=== PATIENT | female | born 1995 | race Caucasian/White ===

== ENCOUNTER 2017-12-16 16:45 | Observation (INO) | payer OTHER, MEDICAID ==
[~2017-12-16] VITALS: Ht 165.1 cm; Wt 104.3 kg
--- NOTE | ~2017-12-16 | OP ---
[address] [address] OPERATIVE REPORT Name: ILENE ZHANG Room: [address] Cesia Das#: [id number] Admission: 12/16/17 Attend Phys: Roland Luu MD Discharge: 12/17/17 Date of : 89 Report #: [id number] THIS REPORT FOR: //name// Please see the post operative note for details of the operative report. By: [id number] Records Staff FAISAL /MARCO A
[~2017-12-16 16:45] MED LIST: MACROBID 100 M100 M1 PO; PRENATAL PO
[2017-12-16 16:55] VITALS: BP 120/58
[2017-12-16 17:18] LABS: HEMOGLOBIN 10.1 gm/dL (12.0-15.0); MCH 28.1 pg (26.0-34.0); MCHC 33.6 g/dL (28.0-37.0); MCV 83.5 fL (80.0-100.0); NUCLEATED RBCS 0 /100WBC; PLATELET COUNT* 379 thou/uL (150-400); RBC 3.59 mil/uL (4.20-5.00); RDW-CV 15.5 % (10.5-14.5); WBC 33.6 thou/uL (4.0-11.0)
[2017-12-16 17:26] LABS: CALCIUM 8.6 mg/dL (8.5-10.1); CREATININE 0.8 mg/dL (0.6-1.3); POTASSIUM 3.3 mmol/L (3.5-5.1)
[2017-12-16 17:30] LABS: ALBUMIN 2.6 g/dL (3.4-5.0); TOTAL BILIRUBIN 0.2 mg/dL (<0.1-1.0); TOTAL PROTEIN 6.6 g/dL (6.4-8.2)
[2017-12-16 17:50] LABS: ABSOLUTE LYMPHOCYTES 2.7 thou/uL (0.8-5.3); ABSOLUTE MONOCYTES 0.7 thou/uL (0.0-1.2); ABSOLUTE NEUTROPHILS 30.2 thou/uL (1.6-8.1); PLATELET ESTIMATE ADEQUATE
[2017-12-16 17:59] VITALS: BP 114/56
[2017-12-16 21:04] VITALS: BP 101/49
--- NOTE | 2017-12-16 21:12 | NUR ---
ARRIVED FROM SURGERY ALERT AND ORIENTED BUT DROWSY. ASSESSMENT CHARTED. RATING ABDOMINAL PAIN 1 AT THIS TIME. NO C/O N/V. SCANT AMOUNT OF BLEEING NOTED ON VAGINAL PAD AT THIS TIME. RESTING QUIETLY IN BED AT THIS TIME WITH FAMILY AT BEDSIDE. CALL LIGHT WITHIN REACH. INSTRUCTED TO CALL FOR ASSIST WHEN GETTING UP.
[2017-12-17] VITALS (8 sets, daily range): BP systolic 95–113; BP diastolic 46–60
[2017-12-17 04:19] LABS: HEMATOCRIT 17.1 % (37.0-47.0); HEMOGLOBIN 5.6 gm/dL (12.0-15.0)
--- NOTE | 2017-12-17 06:03 | NUR ---
ALERT AND ORIENTED X4. DENIED NEED FOR PAIN MEDICATION OR NAUSEA MEDICATION. UP WITH STAND BY ASSIST DUE TO C/O BEING A LITTLE DIZZY. HAD 1 PAD WITH MODERATE AMOUNT OF BLOODY DISCHARGE AND 2ND PAD CURRENTLY ONLY HAS SMALL AMOUNT OF BLOOD DRAINAGE ON IT AT THIS TIME. CRITICAL LAB RESULTS CALLED TO AND NEW ORDER TO TRANSFUSE 1 UNIT OF PRBC'S. CURRENTLY AWAITING PRBC'S FROM LAB. FAMILY AT BEDSIDE THROUGHOUT NIGHT. IVF INFUSING WITHOUT DIFFICULTY. SKIN COLOR PALE. VOIDING WITHOUT DIFFICULTY PINK TINGED URINE. KPAD HELPFUL FOR ABDOMINAL PAIN. CALL LIGHT WITHIN REACH.
[2017-12-17 07:44] LABS: URINE BILIRUBIN NEGATIVE (Negative); URINE BLOOD 3+ (Negative); URINE CLARITY CLEAR; URINE COLOR YELLOW; URINE GLUCOSE-RANDOM NEGATIVE (Negative); URINE KETONES NEGATIVE (Negative); URINE LEUKOCYTES-REFLEX NEGATIVE (Negative); URINE NITRITE-REFLEX NEGATIVE (Negative); URINE PROTEIN NEGATIVE (Negative); URINE UROBILINOGEN 0.2 E.U./dl (0.2-1.0)
[2017-12-17 07:50] LABS: MUCUS 0-3 Light strn/LPF (None Seen); SQUAMOUS >10 Many /LPF (0-3)
[2017-12-17 07:51] LABS: BACTERIA-REFLEX 1-9 Few /HPF (None Seen); CASTS None Seen /LPF (None Seen); CRYSTALS None Seen /LPF (None Seen); URINE RBC 3-10 Few /HPF (0-2); URINE WBC-REFLEX 0-5 Rare /HPF (0-5)
[2017-12-17 13:50] LABS: HEMATOCRIT 18.8 % (37.0-47.0); HEMOGLOBIN 6.3 gm/dL (12.0-15.0)
[2017-12-17 18:02] LABS: HEMATOCRIT 23.2 % (37.0-47.0); HEMOGLOBIN 7.8 gm/dL (12.0-15.0)
[2017-12-17] MEDS ORDERED: NORCO 5-325 TA1 EACH PO (19:48)
--- NOTE | 2017-12-17 20:41 | NUR ---
PT CLEARED FOR DISCHARGE PER DR. MASON AFTER SECOND UNIT OF BLOOD. H&H RESULTS IMPROVED, DR. MASON NOTIFIED AND APPROVED DISCHARGE TO HOME. PT TOLERATED BLOOD TRANSFUSION, NO AVR. TWO IV'S REMOVED. PT PACKED PERSONAL BELONGINGS, ROOM CHECKED. ALL DISCHARGE EDUCATION REVIEWED AND SIGNED. PRESCRIPTION GIVEN WITH EDUCATION CARE NOTES. PT STABLE, TALKATIVE AND SMILING AT DISCHARGE. PT AMBULATED WITH FRIEND AND NURSING STAFF TO SPOUSE IN CAR TO GO HOME. DISCHARGE AND ASSESSMENTS COMPLETED.
--- NOTE | 2017-12-20 14:04 | S ---
[place] [address] SURGICAL PATH RPT PROCEDURE Name: ILENE ZHANG LAURA Room: [address] Thiago#: [id number] Admission: 12/16/17 Date of : 89 Discharge: 12/17/17 Report #: [id number] Path Case #: [id number] PATHOLOGY REPORT COLLECTION DATE: 12/16/2017 RECEIVED DATE: 12/18/2017 SUBMITTING PHYS: Dr. Roland Luu OTHER PHYS: SPECIMEN(S) RECEIVED: A.Placenta and contents of uterus * * * * * * * * * * * * FINAL DIAGNOSIS: Placenta and contents of uterus: - 66 gram, disrupted placental tissue with severe acute chorioamnionitis and 9.7 cm long segment of eccentrically-attached, stricture-free, three-vessel umbilical cord with mild acute funisitis. - Separate fragments of placental tissues including chorionic villi and acutely inflamed and necrotic decidua/gestational endometrium. (see comment) COMMENT: It cannot be determined if all placental tissue have been removed. Severe acute chorioamnionitis is seen in the placental and extraplacental membranes with relatively mild acute funisitis also present. Acute chorioamnionitis can be the result or the cause of premature rupture of membranes and is associated with initiation of premature labor and can also indicate and/or maternal sepsis. (GUICHO:; 12/20/2017) PATHOLOGIST: Yoel Licona M.D. REPORT ELECTRONICALLY SIGNED BY: Yoel Licona M.D. DATE/TIME: 12/20/2017 14:03 * * * * * * * * * * * * GROSS PATHOLOGY: The specimen is received in saline, and placed into formalin upon arrival, labeled "Ilene Zhang, placenta and contents of uterus". Received is a moderately torn partial placenta measuring 7.7 x 6.8 x 2.8 cm in greatest dimensions with attached umbilical cord measuring 9.7 cm in length by 0.9 cm in diameter, which inserts eccentrically, 0.8 cm from the closest distal margin. The partial placental disc has a trimmed placental weight of 66 g. The surface is pale cuevas and glistening in appearance. membranes are not attached. The maternal surface is pink-cuevas and slightly [place] [address] SURGICAL PATH RPT PROCEDURE Name: ILENE ZHANG CARITO SANCHEZ Room: [address] Cesia Das#: [id number] Admission: 12/16/17 Date of : 89 Discharge: 12/17/17 Report #: [id number] Path Case #: [id number] Sectioning reveals pink-cuevas cut surfaces throughout with no grossly distinct nodules or lesions. The 3 vessel umbilical cord is white-cuevas to dusky white-barragan in appearance. Also received within the specimen container is a large amount of blood coagulum admixed with dusky barragan-cuevas membranes measuring 11.5 x 9.8 x 4.2 cm, and having an aggregate weight of 72 g. Also received within the specimen container is a sealed vacuum trap container, which is exposed to formalin upon arrival, containing a moderate amount of barragan-cuevas soft tissue measuring 7.5 x 6.6 x 1.2 cm in aggregate dimensions. or embryonic tissue is not grossly identified. The specimen is submitted representatively as follows: A1 membrane roll and umbilical cord A2-A3 full-thickness cross-sections of moderately torn placenta A4 senior outside sales representative sections from separately submitted container. (CAA; 12/19/2017) CLINICAL HISTORY: Hemorrhage post miscarriage INITIAL CPT CODE(S): A; 21521 Professional services performed by [facility] [place] [address] Technical services performed by [facility] [facility] at [address] [place] [address], [address], [place] [address]. [facility] [address] [place] [address] PHONE: [phone] DIRECTOR: Arnold Marques M.D. * * * END OF REPORT * * *
== END 2017-12-17 20:11 | disposition home or self-care (01) ==
LOC: M.ERS 16:45 → M.SUR 18:11 → M.ORTHSURG 19:25 → M.SUR 19:25 → M.ORTHSURG 19:25
PROVIDERS: Nurse Practitioner Family; ADMIT Specialist
DX: O03.4 Incomplete spontaneous abortion without complication (principal); O99.012 Anemia complicating pregnancy, second trimester; D62 Acute posthemorrhagic anemia; O99.332 Smoking (tobacco) complicating pregnancy, second trimester; F17.200 Nicotine dependence, unspecified, uncomplicated; Z3A.16 16 weeks gestation of pregnancy